=== PATIENT | male | born 1975 | race Caucasian/White ===

== ENCOUNTER 2020-04-29 16:08 | Outpatient (CLI) | payer MEDICARE, MEDICAID, SELFPAY ==
--- NOTE | ~2020-04-29 | XR_ITS ---
XR shoulder RT min 2V 04/29/2020 16:25 Indication: Right shoulder pain Procedure: 4 views right shoulder Comparison: No prior studies for comparison. Findings: There is osteoarthritis of the glenohumeral and acromioclavicular joint. Surrounding osseou s structures and soft tissues are unremarkable. No foreign bodies. Impression: 1: Mild-moderate polyarticular osteoarthritis. Reviewed, dictated and finalized at location A. Impression: 1: Mild-moderate polyarticular osteoarthritis.
== END 2020-04-29 16:09 | disposition home or self-care (01) ==
LOC: CHSLAB 16:10
PROVIDERS: PCP Family Medicine; Visit Provider Family Medicine
DX: M25.511 Pain in right shoulder (principal)
CPT/HCPCS: 73030

== ENCOUNTER 2020-06-05 10:55 | Outpatient (RCR) | payer MEDICARE, MEDICAID, SELFPAY ==
--- NOTE | 2020-06-05 13:13 | PTOPEVAL ---
Thank you for referring Murali Ignacio to [facility]. Please review, sign, date and return this plan of care RASEHED. I agree with and certify that the following plan of care is medically necessary. Referring Physician Date Admitting Provider: Attending Provider: PHYSICIAN NOT ON STAFF Referring Provider: *PT Outpatient Evaluation Start: 06/05/20 11:09 Freq: Status: Active Protocol: Document 06/05/20 11:10 JOSE (Rec: 06/05/20 11:43 JOSE [email or web address]) Therapy Assessment Status Assessment Status Assessment Status Evaluation Outpatient Past Medical History Endocrine History Hx Diabetes Yes Other History Hx Other Surgeries Yes: neck x 2 and right hip Evaluation Information Problem Diagnosis right OA of the glenohumeral joint, right shoulder pain Onset 12/06/19 Subjective Information Pt. reports that he has had Query Text:As Reported By Patient/ worsening shoulder pain for Family the past 6 months. He states that he had xray which revealed mild arthritis. He did recieve injection which did not help. He reports that he has not had an MRI. He reports that pain is on the top and front of the shoulder. He reports that pain is increased with any right shoulder movement. He reports that his goal is to decrease his shoulder pain. Prior Level of Function Activity Level (Last 3 Months) Occupation disabled Hand Dominance Right Activity of Daily Living Ability Independent Indoor/Home Mobility Independent Community Mobility Independent Stairs Ability Independent Functional Cognition (Planning, Shopping Independent , Taking Medications) Cooking Yes Cleaning Yes Laundry Yes Shopping Yes Driving Yes Pain Assessment Timing of Pain Assessment Timing of Pain Assessment Pre-Treatment Pain Scale Pain Scale Used Numeric (1 - 10) Self Report Pain Assessment Right Shoulder(s) Reported Pain Level 7 Pain Description Sharp Pain Relief Interventions Used By Medication Patient Additional Pain Comments pt. utilizes tramadol and hydrocodone daily Pain
--- NOTE | 2020-07-02 15:42 | PTOPEVAL ---
Thank you for referring Murali Ignacio to [facility].? The patient is scheduled to be seen for therapy? ____x/week for ___ weeks. Please review, sign, date and return this plan of care RASHEED. I agree with and certify that the following plan of care is medically necessary. Referring Physician Date Admitting Provider: Attending Provider: PHYSICIAN NOT ON STAFF Referring Provider: *PT Outpatient Evaluation Start: 06/05/20 11:09 Freq: Status: Active Protocol: Document 07/02/20 15:32 JOSE (Rec: 07/02/20 15:42 JOSE [email or web address]) Therapy Assessment Status Assessment Status Assessment Status Progress Outpatient Past Medical History Endocrine History Hx Diabetes Yes Other History Hx Other Surgeries Yes: neck x 2 and right hip Evaluation Information Problem Diagnosis right shoulder pain Subjective Information Pt. reports that he returned Query Text:As Reported By Patient/ to his doctor who suggested Family continued therapy. He underwent MRI which revealed no tear in the rotator cuff and only inflammation. He states that he notes better mobility, but states that pain continues to persist. Pain Assessment Pain Scale Pain Scale Used Numeric (1 - 10) Self Report Pain Assessment Right Shoulder(s) Reported Pain Level 7 Pain Score Pain Score 7: Self Report Upper Extremity Range of Motion General Upper Extremity Range of Motion Gross Upper Extremity Range of Motion right shoulder flexion= 150 Comments degrees right shoulder IR= 64 degrees right shoulder ER= 86 degrees Upper Extremity Muscle Strength Testing General Upper Extremity Strength Gross Upper Extremity Strength Comments right shoulder flexion 5/5 right shoulder abduction 4+/5 right shoulder IR 5/5 right shoulder ER 4+/5 Posture Posture Sitting Position Additional Posture Comments Pt. demonstrates improved seated postural awareness. Note no need from verbal cues regarding shoulder positioning with resistive exercise. Palpation Assessment Palpation Palpation Mild TTP noted at the bicipetal groove and insertion of the rotator cuff mm. Special Tests-Upper Extremity Shoulder Special Tests Speed's Test Positive Right Hawkin's Wes Test Negative Right General Exercise
--- NOTE | 2020-08-06 12:49 | PCPTNOTE ---
Mr. Ignacio attended a total of 15 treatment sessions from 06/05/20 to 07/14/20. He has failed to return to the clinic and cannot be contacted via telephone. He will be discharged from our care at this time. Thank you for the referral of this pt. Yaakov Dunbar, MPT
== END 2020-07-14 17:08 | disposition home or self-care (01) ==
LOC: CHSPT 10:55
PROVIDERS: PCP Family Medicine
DX: M19.011 Primary osteoarthritis, right shoulder (principal); M75.81 Other shoulder lesions, right shoulder
CPT/HCPCS: 97014; 97110; 97140; 97161; G0283

== ENCOUNTER 2020-08-28 13:01 | Outpatient (RCR) | payer MEDICARE, MEDICAID, SELFPAY ==
--- NOTE | 2020-08-28 13:34 | PTOPEVAL ---
Thank you for referring Murali Ignacio to [facility].? The patient is scheduled to be seen for therapy? __3__x/week for 12 visits. Please review, sign, date and return this plan of care RASHEED. I agree with and certify that the following plan of care is medically necessary. Referring Physician Date Admitting Provider: Attending Provider: Natanael Li, MD Referring Provider: *PT Outpatient Evaluation Start: 08/28/20 13:02 Freq: Status: Active Protocol: Document 08/28/20 13:02 JOSE (Rec: 08/28/20 13:34 JOSE [email or web address]) Therapy Assessment Status Assessment Status Assessment Status Evaluation Outpatient Past Medical History Endocrine History Hx Diabetes Yes Other History Hx Other Surgeries Yes: neck x 2 and right hip Evaluation Information Problem Diagnosis right bicep tenodesis Onset 08/13/20 Subjective Information Pt. reports that he underwent Query Text:As Reported By Patient/ biceps tenodesis on 08/13/20. Family He reports that he was in a sling for 1 day. He currently is on a 2# weight limit. He states shaving has been difficult since surgery. He reports that his pain prior to surgery is gone, but states that he does have stiffness and tenderness in the right shoulder. Pt. reports his goal is to improve right shoulder strength and mobility . Prior Level of Function Activity Level (Last 3 Months) Occupation disability Hand Dominance Right Activity of Daily Living Ability Independent Indoor/Home Mobility Independent Community Mobility Independent Stairs Ability Independent Functional Cognition (Planning, Shopping Independent , Taking Medications) Cooking Yes Cleaning Yes Laundry Yes Shopping Yes Driving Yes Pain Assessment Pain Scale Pain Scale Used Numeric (1 - 10) Self Report Pain Assessment Right Shoulder(s) Reported Pain Level 5 Pain Description Pressure,Tightness Pain Frequency Acute,Continuous Lowest Pain Intensity 5 Greatest Pain Intensity 10 Pain Level Goal 0 Pain Aggravating Factors Exercise/Activity Pain Score Pain Score 5: Charisse
--- NOTE | 2020-09-29 18:03 | PTOPEVAL ---
Thank you for referring Murali Ignacio to [facility].? The patient is scheduled to be seen for therapy? __2__x/week for 8 visits. Please review, sign, date and return this plan of care RASHEED. I agree with and certify that the following plan of care is medically necessary. Referring Physician Date Admitting Provider: Attending Provider: Natanael Li, MD Referring Provider: *PT Outpatient Evaluation Start: 08/28/20 13:02 Freq: Status: Active Protocol: Document 09/29/20 11:00 JOSE (Rec: 09/29/20 18:02 JOSE [email or web address]) Therapy Assessment Status Assessment Status Assessment Status Progress Outpatient Past Medical History Endocrine History Hx Diabetes Yes Other History Hx Other Surgeries Yes: neck x 2 and right hip Evaluation Information Problem Diagnosis right bicep tenodesis Onset 08/13/20 Subjective Information Pt. reports that he was give a Query Text:As Reported By Patient/ 2# restriction at home and 5# Family restriction for PT at his last doctor appointment. He states that his pain is decreasing and notes that mobility is improving. he reports that he would like to continue treatment to improve strength. Pain Assessment Pain Scale Pain Scale Used Numeric (1 - 10) Self Report Pain Assessment Right Shoulder(s) Reported Pain Level 2 Greatest Pain Intensity 3 Pain Score Pain Score 2: Self Report Interventions Used Interventions Used By Clinicians Electrical Stimulation, Exercise,Heat Upper Extremity Range of Motion Scapular/ Shoulder Range of Motion Right Shoulder Flexion - Active 140 Shoulder Medial Rotation - Active 67 Shoulder Lateral Rotation - Active 72 Upper Extremity Muscle Strength Testing General Upper Extremity Strength Gross Upper Extremity Strength Comments right shoulder flexion 3+/5 right shoulder ER 3+/5 right shoulder abduction 3+/5 right shoulder IR 4+/5 General Exercise General Exercises Exercise Description -PROM to the right shoulder in Query Text:Record Sets, Reps, all planes x 10 minutes] Resistance, and Position -resisted IR/ER x 20 green -bilateral shoulder retraction x 20 green -bilateral shoulder extension with scapular depression x 20 green -bilateral scaption 2
== END 2020-10-28 11:33 | disposition home or self-care (01) ==
LOC: CHSPT 13:01
PROVIDERS: Visit Provider Orthopaedic Surgery
DX: M75.21 Bicipital tendinitis, right shoulder (principal); M75.41 Impingement syndrome of right shoulder; M19.011 Primary osteoarthritis, right shoulder
CPT/HCPCS: 97014; 97110; 97161; G0283